=== PATIENT | male | born 1990 | race Caucasian/White ===

== ENCOUNTER 2017-03-19 14:52 | Inpatient (IN) | payer MEDICAID, OTHER ==
--- NOTE | 2017-03-19 15:15 | C.PDOC ---
Time Seen by Provider: 03/19/17 15:03 Chief Complaint (Nursing): Psychiatric Evaluation Past Medical History Vital Signs: Last Vital Signs Temp 98.0 F 03/19/17 14:57 Pulse 78 03/19/17 14:57 Resp 20 03/19/17 14:57 BP 103/68 03/19/17 14:57 Pulse Ox 99 03/19/17 15:15 - Medical History PMH: Bipolar Disorder, Depression, Post Traumatic Stress Disorder - Social History Hx Alcohol Use: Yes Hx Substance Use: Yes - Immunization History Hx Tetanus Toxoid Vaccination: No Hx Influenza Vaccination: No Hx Pneumococcal Vaccination: No ED Course And Treatment O2 Sat by Pulse Oximetry: 99 Disposition - Disposition Disposition: HOSPITALIZED Disposition Time: 15:18 Condition: GOOD Forms: [facility] (Swiss) - Clinical Impression Clinical Impression: Suicidal ideation, Polysubstance abuse Clinical Impression: (Ruled Out): Polysubstance (excluding opioids) dependence
--- NOTE | 2017-03-19 15:23 | C.PDOC ---
History Of Present Illness 26 y/o male brought in as a transfer from [facility] for evaluation of suicidal ideation and detox for polysubstance abuse. Patient reports visiting his sister in [place], but notes living in a [facility] and using multiple narcotics. He started detox in [place] but was then was seen in [place] for a day. Notes his last use was 5 days prior using 5 bags of heroin a day and cocaine. Patient reports suicidal ideation by history, but when asked indirectly he denies ideation. No attempt or plan. Prior suicide attempts reported was drug overdose and hanging that was a year prior. Last reported psych evaluation was a year ago. Notes not taking any psychiatric meds at the moment. Reports sweats and diarrhea. Denies fever or chills. Time Seen by Provider: 03/19/17 15:03 Chief Complaint (Nursing): Psychiatric Evaluation History Per: Patient History/Exam Limitations: no limitations Onset/Duration Of Symptoms: Days Current Symptoms Are (Timing): Still Present Suicide/Self Injury Attempted (Context): None Modifying Factor(s): Narcotics Severity: Mild Associated Symptoms: Suicidal Thoughts (By hx. Directly denies ideation.). denies: Suicidal Plan Recent travel outside of the [facility]: No Additional History Per: Patient Past Medical History Reviewed: Historical Data, Nursing Documentation, Vital Signs Vital Signs: Last Vital Signs Temp 98.0 F 03/19/17 14:57 Pulse 78 03/19/17 14:57 Resp 20 03/19/17 14:57 BP 103/68 03/19/17 14:57 Pulse Ox 99 03/19/17 15:31 - Medical History PMH: Bipolar Disorder, Depression, Post Traumatic Stress Disorder Family History: States: Unknown Family Hx - Social History Hx Alcohol Use: Yes Hx Substance Use: Yes - Immunization History Hx Tetanus Toxoid Vaccination: No Hx Influenza Vaccination: No Hx Pneumococcal Vaccination: No Review Of Systems Except As Marked, All Systems Reviewed And Found Negative. Constitutional: Positive for: Sweats, Other. Negative for: Fever, Chills Gastrointestinal: Positive for: Diarrhea Psych: Positive for: Suicidal ideation (By hx, denies directly). Negative for: Other (Homicidal ideation) Physical Exam - Physical Exam Appears: Non-toxic, No Acute Distress, Other (Multiple track pena to the bilateral arms of the antecubital fossa) Skin: Warm, Dry Head: Atraumatic, Normacephalic Cardiovascular: Rhythm Regular, No Murmur Respiratory: Normal Breath Sounds, No Rales, No Rhonchi, No Wheezing Gastrointestinal/Abdominal: Soft, No Tenderness Neurological/Psych: Oriented x3 (Awake and alert), Normal Speech, Normal Cognition, Other (No auditory or visual hallucination. No SI at the moment. Follows commands appropriately. ) ED Course And Treatment O2 Sat by Pulse Oximetry: 99 (RA) Pulse Ox Interpretation: Normal Disposition - Disposition Disposition: HOSPITALIZED Disposition Time: 15:18 Condition: GOOD Forms: [facility] (Chinese) - Clinical Impression Clinical Impression: Suicidal ideation, Polysubstance abuse - Scribe Statement The provider has reviewed the documentation as recorded by the Scribe Wilfredo brain All medical record entries made by the Scribe were at my direction and personally dictated by me. I have reviewed the chart and agree that the record accurately reflects my personal performance of the history, physical exam, medical decision making, and the department course for this patient. I have also personally directed, reviewed, and agree with the discharge instructions and disposition.
--- NOTE | 2017-03-19 16:25 | PCM.BM ---
<LongMiriam - Last Filed: 03/19/17 16:24> Treatment Plan Problems - Problems identified on initial assessmt Depression Date Initiated: 03/19/17 Time Initiated: 16:25 Assessment reference: NA Status: Active Treatment assets and liabiliti Patient Assests: adapts well, cooperative, negotiates basic needs Patient Liabilities: live alone, substance abuse - Milieu Protocol Maintain good personal hygiene: daily Encourage regular showers, daily Remind patient to perform daily oral care Conduct patient checks and document Observation sheet: Q15 minutes Maintain personal safety: every shift Educate patient to report safety concerns to staff, every shift Monitor environment for contraband/sharps Medication safety: Monitor for expected outcome, potential side effects: every shift, Assess barriers to learning: every shift, Assess readiness for medication education: every shift <Marcy Fonseca - Last Filed: 03/20/17 16:47> - Diagnosis (1) Major depressive disorder, recurrent episode, severe, with psychotic behavior Status: Acute Interventions: 03/20/17 16:48 * Assess/adjust medications daily and /or as needed * See patient on an individual basis 7x/week to assess symptoms of depression * Monitor for side effects & effectiveness of medications * (2) Opioid use disorder, severe, dependence Status: Acute Interventions: 03/20/17 16:48 * Assess 7x/week regarding severity of withdrawal * Educate regarding risks, benefits, side effects and alternatives of medications * Use Motivational Interviewing for abstinence * Use CBT for relapse prevention * Medication management for withdrawal symptoms * Encourage medication assisted treatment * (3) Cocaine use disorder, severe, dependence Status: Acute Interventions: 03/20/17 16:49 * Assess 7x/week regarding severity of withdrawal * Educate regarding risks, benefits, side effects and alternatives of medications * Use Motivational Interviewing for abstinence * Use CBT for relapse prevention * Medication management for withdrawal symptoms * Encourage medication assisted treatment * <Paris Cardenas - Last Filed: 03/21/17 10:59> Family Contact Family involvement: Famjj/SO not involved - Goals for Treatment Patient goals for treatment: "I need a rooming house." Discharge/Continuing Care - Education Needs Education Needs: Patient Medication, Patient Coping Skills - Discharge Discharge Criteria: Tolerates medication w/o severe side effects, Reduction of target symptoms Discharge to:: Home - Treatment Team Participation Discussed with Family/SO: No Was Patient/Family/SO present at Treatment Team Meeting: Yes
--- NOTE | 2017-03-20 14:05 | PCM.PSYCH ---
Initial Psychiatric Evaluation - Initial Psychiatric Evaluation Type of Admission: Voluntary Legal Status: Capacity Chief Complaint (in patient's own words): "So much going on" History of Present Illness and Precipitating Events: Pt is seen, chart reviewed, case discussed with staff. Pt is a 26 year old male with PMH of Schizophrenia, Opioid use, Cocaine , and Alcohol use disorder who was transferred from [facility]. He is single and has no children. Pt reports he is currently homeless and unemployed, however, he receives SSI. Pt reports he has a history of psychiatric admissions in the past, "a bunch of times too many to keep track of". He reports his most recently hospital stay was approximately 1 year ago. Pt reports he has attempted suicide in the past by hanging himself and consuming large amounts of pills. His last suicide attempt was 3 years ago. Pt states that he has attempted suicide in the past when " I was too overwhelmed, I had so many problems, I was using drugs and was homeless". Pt reports he has a heroin habit of 3-4 bags daily, IV. He states he has been using heroin for approximately 4-5 years. He also has a crack/cocaine habit of which he reports using " a lot, I don'k know how much" which he insufflates and uses IV for the past 6-7 years. Pt also reports drinking approximately 1/3 of a rack of beer. Pt states that when he has stopped drinking in the past he sweats and experiences tremors. Pt states he has only been to 1 detox in the past in [place] where he reports was kicked out of the program. He reports 1 overdose in 2014. Pt denies ever attending a rehab program. Pt denies any other substance use. Pt states that previous to his arrival in [place] he was in [place], [place] where he was using drugs in a train station, when observed by police, was arrested and was found to have an outstanding warrant in [place] and, therefore, was brought over to the state again. Pt [place] [facility] - January of this year due to violation of his probation. Pt states the probation was due to 3rd degree robbery and knife possession. Pt denies currently being in any legal problems or probation. He states that he has a family service caseworker, Amanda, from [employer] who "really helps me out doc". Pt denies having any family members in [place], but does admit that his parents and a few sisters live in [place], but states "I don't speak to them much". Pt denies any medical problems. He reports a diagnosis of Schizophrenia at the age of 23. He also reports a past history of cutting, but states the last time he cut his arms was approximately 3 years ago. He states his mother abused crack in the past and that both his mother and father have a history of Bipolar Disorder. After care discussed. Pt states that upon discharge he "want to get out, clear my thoughts, contact my family service caseworker Amanda and get my life together, even get my GED". Pt is encouraged to consider a rehab program, such as [facility] where resources can be made available to him. Pt will work with counselors and SW. Current Medications: Active Medications Generic Name Dose Route Start Last Admin Trade Name Freq PRN Reason Stop Dose Admin Hydroxyzine HCl 25 mg 03/19/17 17:41 Atarax PO Q6 PRN Anxiety Ibuprofen 600 mg 03/19/17 17:41 Motrin Tab PO Q6 PRN Pain, moderate (4-7) Ondansetron HCl 4 mg 03/19/17 17:41 Zofran Tab PO Q6 PRN Nausea/Vomiting Quetiapine Fumarate 50 mg 03/19/17 22:00 03/19/17 21:10 Seroquel PO 50 mg HS RANDY Administration Trazodone HCl 50 mg 03/19/17 17:41 03/19/17 21:10 Desyrel PO 50 mg HS PRN Administration Insomnia Past Psychiatric History - Past Psychiatric History Pertinent Medical Hx (Current Medical&Sleep Prob, Allergies): Allergies Allergy/AdvReac Type Severity Reaction Status Date / Time No Known Allergies Allergy Verified 03/19/17 15:02 Divalproex [Depakote ER] 03/19/17 Paliperidone [Invega] 3 mg PO 03/19/17 Review of Systems - Integumentary Integumentary: Other Additional comments: Bilateral self - inflicted cuts on upper extremities. - Neurological Neurological: UNREMARKABLE - Psychiatric Psychiatric: Hallucinations, Suicidal Ideation. absent: Homicidal Ideation Mental Status Examination - Personal Presentation Personal Presentation: Looks stated age - Affect Affect: Constricted - Motor Activity Motor Activity: Calm - Reliability in Providing Information Reliability in Providing Information: Fair - Speech Speech: Organized, Relevant - Mood Mood: Neutral - Formal Thought Process Formal Thought Process: Hallucinations, Delusions, Paranoia - Obsessions/Compulsions Obsessions: No Compulsions: No - Cognitive Functions Orientation: Person, Place, Situation Sensorium: Alert Attention/Concentration: Attentive Estimate of Intelligence: Average Judgement: Intact, as evidence by: Good judgement Memory: Recent intact, as evidence by: Ability to recall events of the day, Remote intact, as evidenced by: Abilit to recall sig. life events - Risk Risk: Suicidal, Withdrawal, Self-mutilation - Strength & Assets Inventory Strength & Assets Inventory: Skills, Interests/hobbies, Life experience, Cooperative DSM 5 DX - DSM 5 DSM 5 Diagnosis: Depression with psychotic features R/o Schizophrenia Opioid use disorder, severe Cocaine use disorder, severe Alcohol use disorder, severe - Recommended/Plan of Treatment Treatment Recommendations and Plan of Treatment: Start Atarax 25mg PO Q6 PRN Seroquel 100mg PO HS RANDY Trazodone 50mg PO HS PRN gabapentin 300 mg BID for anxiety Lexapro 10 for anx/depression Supportive tx and CBT for depression Substance use: As needed medications Gabapentin for augmentation and cocaine Attend groups and activities Supportive therapy and psychoeducation [place] for abstinence CBT for relapse prevention Encourage MAT Refer to rehab preferably or IOP Attend self-help groups as well 35 mins Projected ELOS: 5-7 days Prognosis: Fair with treatment
--- NOTE | 2017-03-21 15:04 | PCM.PYCHPN ---
Psychiatric Progress Note - Psychiatric Progress Note Patient seen today, length of contact: 18 mins Patient Chief Complaint: "I'm OK" Problems Identified/Issues Discussed: The pt is seen, chart reviewed, case discussed with staff. He states he is sleeping well throughout the night. Reports no current problems with his detox. The pt is compliant with medications and reports no side-effects. Symptoms are improving but needs more time to stabilize. After care discussed. His plan is to attend a program such as [facility] where he can obtain a room and work with his case management assistant to get his "life together". Pt is encouraged to think about a rehab program where he can receive treatment, work on his sobriety and receive housing at the same time. Pt agrees that "I need to go to rehab because I don't want to go back to the streets". Pt is encouraged to speak to SW and counselors in order to find out about available resources. Medication Change: Yes Medical Record Reviewed: Yes Mental Status Examination - Cognitive Function Orientation: Person, Place, Situation Memory: Intact Attention: Poor Concentration: Poor Association: WNL Fund of Knowledge: WNL - Mood Mood: Depressed - Affect Affect: Constricted - Speech Speech: Appropriate - Formal Thought Process Formal Thought Process: No Impairment - Suicidal Ideation Suicidal Ideation: No - Homicidal Ideation Homicidal Ideation: No Goal/Treatment Plan - Goal/Treatment Plan Need for Continued Stay: Remain at risks for inpatient hospitalization, Discharge may exacerbated symptoms Progress Toward Problem(s) and Goals/Treatment Plan: Continue as needed medications Supportive tx and CBT for depression Seroquel Lexapro Substance use: As needed medications Gabapentin for augmentation and cocaine Attend groups and activities Supportive therapy and psychoeducation [place] for abstinence CBT for relapse prevention Encourage MAT Refer to rehab preferably or IOP Attend self-help groups as well Estimated Date of D/C: 03/26/17
--- NOTE | 2017-03-22 13:28 | PCM.PYCHPN ---
Psychiatric Progress Note - Psychiatric Progress Note Patient seen today, length of contact: 15 minutes Patient Chief Complaint: I'm feeling better, less depressed. Problems Identified/Issues Discussed: Patient seen. Chart reviewed. Case discussed with the staff. Issues related to illness and treatment were discussed with the patient. Reported compliant with treatment with no adverse affects. Tolerating treatment very well. Reported feeling better, still feels depressed at times. On a scale of 0-10 with 10 being the best, reported around 7. At the time of evaluation, patient was awake alert oriented 3, had no delusions , no auditory or visual hallucinations, no suicidal ideations or homicidal ideations. Medical Problems: None reported Diagnostic Results: Reviewed Medication Change: No Medical Record Reviewed: Yes Mental Status Examination - Cognitive Function Orientation: Person, Place, Situation, Time Memory: Intact Attention: WNL Concentration: WNL Association: WN Fund of Knowledge: [facility] Decription of patient's judgement and insights: Fair - Mood Mood: Depressed (Much less than before) - Affect Affect: Other (Appropriate) - Speech Speech: Appropriate - Formal Thought Process Formal Thought Process: No Impairment - Suicidal Ideation Suicidal Ideation: No - Homicidal Ideation Homicidal Ideation: No Goal/Treatment Plan - Goal/Treatment Plan Need for Continued Stay: Remain at risks for inpatient hospitalization, Discharge may exacerbated symptoms, Severe functional impairment Progress Toward Problem(s) and Goals/Treatment Plan: Patient education Supportive therapy Continue treatment as before. Wants to go to [facility] in [facility]. Estimated Date of D/C: 03/24/17 - Smoking Cessation Smoking Cessation Initiated: No
--- NOTE | 2017-03-23 14:52 | PCM.PYCHPN ---
Psychiatric Progress Note - Psychiatric Progress Note Patient seen today, length of contact: 15 minutes Patient Chief Complaint: I'm feeling better, less depressed. Problems Identified/Issues Discussed: Patient seen. Chart reviewed. Case discussed with the staff. Issues related to illness and treatment were discussed with the patient. Reported compliant with treatment with no adverse affects. Tolerating treatment very well. Reported feeling better, still feels depressed at times. On a scale of 0-10 with 10 being the best, reported around 8. At the time of evaluation, patient was awake alert oriented 3, had no delusions , no auditory or visual hallucinations, no suicidal ideations or homicidal ideations. Medical Problems: None reported Diagnostic Results: Reviewed DSM 5 Symptoms Update: Improving with treatment Medication Change: No Medical Record Reviewed: Yes Mental Status Examination - Cognitive Function Orientation: Person, Place, Situation, Time Memory: Intact Attention: WNL Concentration: WNL Association: WN Fund of Knowledge: [facility] Decription of patient's judgement and insights: Fair - Mood Mood: Depressed (Much less than before) - Affect Affect: Other (Appropriate) - Speech Speech: Appropriate - Formal Thought Process Formal Thought Process: No Impairment Psychotic Thoughts and Behaviors: None - Suicidal Ideation Suicidal Ideation: No - Homicidal Ideation Homicidal Ideation: No Goal/Treatment Plan - Goal/Treatment Plan Need for Continued Stay: Remain at risks for inpatient hospitalization, Discharge may exacerbated symptoms, Severe functional impairment Progress Toward Problem(s) and Goals/Treatment Plan: Patient education Supportive therapy Continue treatment as before. Wants to go to [facility] in [facility]. Estimated Date of D/C: 03/26/17 - Smoking Cessation Smoking Cessation Initiated: No
--- NOTE | 2017-03-24 12:43 | PCM.PYCHPN ---
Psychiatric Progress Note - Psychiatric Progress Note Patient seen today, length of contact: 15 minutes Patient Chief Complaint: "I'm OK" Problems Identified/Issues Discussed: The pt is seen, chart reviewed, case discussed with staff. He states he is sleeping well throughout the night. Reports no current problems with his detox. The pt is compliant with medications and reports no side-effects. Symptoms are improving but needs more time to stabilize. After care discussed. His plan is to live with a high school friend, work on the side and attend outpatient programs . Recommended to pt to think about a rehab program where he can receive treatment, work on his sobriety and receive housing at the same time. Medication Change: No Medical Record Reviewed: Yes Mental Status Examination - Cognitive Function Orientation: Person, Place, Situation, Time Memory: Intact Attention: WNL Concentration: WNL Association: WNL Fund of Knowledge: WNL - Mood Mood: Anxious - Affect Affect: Other (Appropriate) - Speech Speech: Appropriate - Formal Thought Process Formal Thought Process: No Impairment - Suicidal Ideation Suicidal Ideation: No - Homicidal Ideation Homicidal Ideation: No Goal/Treatment Plan - Goal/Treatment Plan Need for Continued Stay: Remain at risks for inpatient hospitalization, Discharge may exacerbated symptoms Progress Toward Problem(s) and Goals/Treatment Plan: Continue as needed medications Supportive tx and CBT for depression Seroquel Lexapro Substance use: As needed medications Gabapentin for augmentation and cocaine Attend groups and activities Supportive therapy and psychoeducation [place] for abstinence CBT for relapse prevention Encourage MAT Refer to rehab preferably or IOP Attend self-help groups as well Estimated Date of D/C: 03/26/17 - Smoking Cessation Smoking Cessation Initiated: No
[2017-03-25 07:28] VITALS: BP 102/66; PULSE 66; RESP 20; TEMP 98.5; O2SAT 96
--- NOTE | 2017-03-25 09:30 | PCM.PYCHDC ---
Mental Status Examination - Mental Status Examination Orientation: Person, Place, Situation, Time Memory: Intact Mood: Anxious Affect: Constricted Speech: Appropriate Attention: WNL Concentration: Poor Association: WNL Fund of Knowledge: WNL Formal Thought Process: No Impairment Suicidal Ideation: No Current Homicidal Ideation?: No Discharge Summary - Discharge Note Consultations:: List each consultation separately and include: 1. Reason for request. 2. Findings. 3. Follow-up Summary of Hospital Course include:: 1. Description of specific treatment plan utilized for patients during their course of treatmen. 2. Summarize the time- course for resolution of acute symptoms and/or regressed behaviors. 3. Describe issues identified and worked on during hospitalization. 4. Describe medication utilized. 5. Describe medical problems identified and treated. 6. Reassessment of suicide risk Summary of Hospital Course: Pt is seen, chart reviewed, case discussed with staff. On admission: Pt is a 26 year old male with PMH of Schizophrenia, Opioid use, Cocaine , and Alcohol use disorder who was transferred from [facility]. He is single and has no children. Pt reports he is currently homeless and unemployed, however, he receives SSI. Pt reports he has a history of psychiatric admissions in the past, "a bunch of times too many to keep track of". He reports his most recently hospital stay was approximately 1 year ago. Pt reports he has attempted suicide in the past by hanging himself and consuming large amounts of pills. His last suicide attempt was 3 years ago. Pt states that he has attempted suicide in the past when " I was too overwhelmed, I had so many problems, I was using drugs and was homeless". Pt reports he has a heroin habit of 3-4 bags daily, IV. He states he has been using heroin for approximately 4-5 years. He also has a crack/cocaine habit of which he reports using " a lot, I don'k know how much" which he insufflates and uses IV for the past 6-7 years. Pt also reports drinking approximately 1/3 of a rack of beer. Pt states that when he has stopped drinking in the past he sweats and experiences tremors. Pt states he has only been to 1 detox in the past in [place] where he reports was kicked out of the program. He reports 1 overdose in 2014. Pt denies ever attending a rehab program. Pt denies any other substance use. Pt states that previous to his arrival in [place] he was in [place], [place] where he was using drugs in a train station, when observed by police, was arrested and was found to have an outstanding warrant in [place] and, therefore, was brought over to the state again. Pt reports he was in prison from November - January of this year due to violation of his probation. Pt states the probation was due to 3rd degree robbery and knife possession. Pt denies currently being in any legal problems or probation. He states that he has a counter caser, Amanda, from [facility] who "really helps me out doc". Pt denies having any family members in [place], but does admit that his parents and a few sisters live in [place], but states "I don't speak to them much". Pt denies any medical problems. He reports a diagnosis of Schizophrenia at the age of 23. He also reports a past history of cutting, but states the last time he cut his arms was approximately 3 years ago. He states his mother abused crack in the past and that both his mother and father have a history of Bipolar Disorder. After care discussed. Pt states that upon discharge he "want to get out, clear my thoughts, contact my counter caser Amanda and get my life together, even get my GED". Pt is encouraged to consider a rehab program, such as [facility] where resources can be made available to him. Pt will work with counselors and . Hospital course: The pt was admitted and started on treatment with psychotherapy, support, psychoeducation and medications. [place] and CBT used. The pt attended groups and activities, as well as milieu therapy. All the risks and benefits of medications are discussed and the patient understood and agreed. The pt improved with the treatments provided. After care discussed with the patient. He was interested in going to a rehab but then he got OK from a friend and wanted to leave early. He is referred to [facility] in He has low insight into his condition, takes everything as a joke, likely has personality d/o and perhaps borderline IQ - Final Diagnosis (DSM 5) Condition upon Discharge: GOOD DSM 5: Depressive d/o - unspecified Opioid use disorder, severe Cocaine use disorder, severe Alcohol use disorder, severe Personality d/o- unspecified Disposition: HOME/ ROUTINE Prescriptions/Medication Reconciliation: Escitalopram [Lexapro] 10 mg PO DAILY #30 tab Gabapentin [Neurontin] 300 mg PO BID #60 cap QUEtiapine [Seroquel] 100 mg PO HS #30 tab traZODone [Desyrel] 50 mg PO HS PRN #30 tab PRN Reason: Insomnia - Smoking Cessation Smoking Cessation Medication prescribed: No - Antipsychotic Medications Pt discharged on 2 or more routine antipsychotic medications: No
== END 2017-03-25 11:00 | disposition home or self-care (01) | DRG 430 ==
LOC: C.ER 14:52 → C.9E 15:13 → C.5E 15:32
PROC: GZ56ZZZ Individual Psychotherapy, Supportive (ICD-10-PCS; principal; 2017-03-19)
PROC: HZ2ZZZZ Detoxification Services for Substance Abuse Treatment (ICD-10-PCS; 2017-03-19)
DX: F33.3 Major depressive disorder, recurrent, severe with psychotic symptoms (principal); R45.851 Suicidal ideations; F11.20 Opioid dependence, uncomplicated; F14.10 Cocaine abuse, uncomplicated; Z59.0 Homelessness